=== PATIENT | male | born 1935 | race Caucasian/White ===

== ENCOUNTER 2018-01-24 10:43 | Emergency (ER) | payer OTHER, MEDICARE ==
[~2018-01-24] VITALS: Ht 170.2 cm; Wt 79.4 kg
[~2018-01-24 10:43] MED LIST: ABAC300 PO; ALBU90OI INH; AMLO10 PO; AMLO5 PO; ASPI81CH PO; ATEN50 PO; Augmentin 875-1 EACH PO; BENZ100A PO; BUPR75; CELE200 PO; CITA20 PO; Celebrex200 MG PO; ESCITALOPRAM OX20 MG PO; ESOM20; ESOM20 PO; Flonase 0.05% N16 GM; HYDCHL12.5 PO; LEVFLO500 PO; LOSA50 PO; MELO7.5 PO; MICROZIDE12.5 MG PO; Norco 5-325 Ta1 EACH PO; PANT40 PO; Prednisone20 MG PO; SIMV5 PO; TERA5 PO; [UNRECOGNIZED DRUG - OTHER] PO
[2018-01-24] MEDS ORDERED: Norco 5-325 Ta1 EACH PO (12:39)
== END 2018-01-24 13:00 | disposition home or self-care (01) ==
LOC: ER 10:43
DX: M25.551 Pain in right hip (principal); J44.9 Chronic obstructive pulmonary disease, unspecified; I10 Essential (primary) hypertension; F32.9 Major depressive disorder, single episode, unspecified; Z79.899 Other long term (current) drug therapy; Z87.891 Personal history of nicotine dependence
CPT/HCPCS: 73502; 99283

== ENCOUNTER 2018-03-22 09:03 | Day surgery (SDC) | payer MEDICARE, OTHER ==
[~2018-03-22] VITALS: Ht 170.2 cm; Wt 82.2 kg
[2018-03-22] MEDS ORDERED: TRAZ50 (09:24)
[2018-03-22] MEDS ORDERED: ABAT250V (09:25)
[2018-03-22] MEDS ORDERED: Omeprazole20 M1 PO (09:25)
== END 2018-03-22 11:01 | disposition home or self-care (01) ==
LOC: ORSCSDS 09:03
PROVIDERS: Ophthalmology
PROC: 085K3ZZ Destruction of Left Lens, Percutaneous Approach (ICD-10-PCS; principal; 2018-03-22 10:30)
PROC: 08RK3JZ Replacement of Left Lens with Synthetic Substitute, Percutaneous Approach (ICD-10-PCS; principal; 2018-03-22 10:30)
DX: H25.12 Age-related nuclear cataract, left eye (principal); I10 Essential (primary) hypertension; J44.9 Chronic obstructive pulmonary disease, unspecified; Z79.899 Other long term (current) drug therapy
CPT/HCPCS: J2250; J3010; J3301; J7040; V2632

== ENCOUNTER → 2018-06-29 | Outpatient (CLI) | payer MEDICARE, OTHER ==
[~2018-06-29] MED LIST changes: +ABAT250V; +Omeprazole20 M1 PO; +TRAZ50
[2018-06-29 15:35] LABS: Appearance, Urine Clear (Clear); Bilirubin, Urine Neg (Neg); Blood, Urine Neg (Neg); Color, Urine Yellow (P-Yellow); Glucose Qualitative, Urine Neg (Neg); Ketones, Urine Neg (Neg); Leukocyte Esterase, Urine Neg (Neg); Nitrite, Urine Neg (Neg); Protein, Urine Neg (Neg); Urobilinogen, Urine NORM (Normal)
== END ==
LOC: LAB SHORT 15:29 → LAB 15:29
PROVIDERS: Orthopaedic Surgery Adult Reconstructive Orthopaedic Surgery
DX: R35.0 Frequency of micturition (principal)
CPT/HCPCS: 81003

== ENCOUNTER 2019-03-27 09:32 | Day surgery (SDC) | payer MEDICARE, OTHER ==
[~2019-03-27] VITALS: Ht 164 cm; Wt 83.6 kg
[~2019-03-27 09:32] MED LIST changes: +ACET120S PO; +OXYM.05NI; +PRIM250 PO; +THERA1 EACH PO; +TIOT18 INH; +URINOZINC PO
--- NOTE | 2019-03-27 16:27 | NUR ---
RECEIVED PATIENT FROM KAYLA NASH RN. PT AWAKE AND ORIENTED. PT UNABLE TO BRING 02 SATS UP ON OWN WITH DBC. PLACED BACK ON 2LNC. PROVIDED FOOD AND FLUID. DRESSINGS CDI ON ARRIVAL TO ABDOMEN. TRANSFERRED CARE AND REPORT TO RHEA THOMAS.
--- NOTE | 2019-03-27 17:40 | NUR ---
up to bathroom at this time
--- NOTE | 2019-03-27 18:05 | NUR ---
Discharge instructions reviewed with patient. Patient verbalizes understanding. Copy given to patient to take home. Patient States Post-Procedure ride home has been arranged. Discharged via wheelchair to private car for ride home.
--- NOTE | 2019-03-28 11:00 | NUR ---
03/28/19 Aleta Lockhart CHART VERIFICATIONS, EDITS. CHANGE OR LEVELS AFTER DISCUSSING WITH COLEMAN BRAY.
== END 2019-03-27 22:38 | disposition home or self-care (01) ==
LOC: ORSCMMR 09:32 → ORD 11:15 → ORSCMMR 22:38
PROVIDERS: Surgery
PROC: 0WUF0JZ Supplement Abdominal Wall with Synthetic Substitute, Open Approach (ICD-10-PCS; principal; 2019-03-27 11:15)
PROC: 8E0W4CZ Robotic Assisted Procedure of Trunk Region, Percutaneous Endoscopic Approach (ICD-10-PCS; principal; 2019-03-27 11:15)
PROC: 0YUA4JZ Supplement Bilateral Inguinal Region with Synthetic Substitute, Percutaneous Endoscopic Approach (ICD-10-PCS; principal; 2019-03-27 11:15)
DX: K42.9 Umbilical hernia without obstruction or gangrene (principal); K40.20 Bilateral inguinal hernia, without obstruction or gangrene, not specified as recurrent; J44.9 Chronic obstructive pulmonary disease, unspecified; G25.0 Essential tremor; I10 Essential (primary) hypertension; N40.0 Benign prostatic hyperplasia without lower urinary tract symptoms; F32.9 Major depressive disorder, single episode, unspecified; Z79.899 Other long term (current) drug therapy; Z87.891 Personal history of nicotine dependence
CPT/HCPCS: 49650; 49585; S2900; A9270-GY; C1781; J0690; J1100; J2370; J2405; J2704; J2710; J3010; J7120

== ENCOUNTER → 2019-08-14 | Outpatient (CLI) | payer MEDICARE, OTHER | END | disposition home or self-care (01) | LOC: LAB SHORT 11:56 → PLD 11:56 | DX: C44.311 Basal cell carcinoma of skin of nose (principal); C44.41 Basal cell carcinoma of skin of scalp and neck; L57.0 Actinic keratosis | CPT/HCPCS: 88305 ==

== ENCOUNTER → 2019-09-10 | Outpatient (CLI) | payer MEDICARE, OTHER | END | disposition home or self-care (01) | LOC: PLD 08:33 → LAB SHORT 08:33 | DX: C44.41 Basal cell carcinoma of skin of scalp and neck (principal) | CPT/HCPCS: 88305 ==

== ENCOUNTER 2020-08-05 06:34 | Day surgery (SDC) | payer MEDICARE, OTHER ==
[~2020-08-05] VITALS: Ht 170.2 cm; Wt 85.5 kg
[~2020-08-05 06:34] MED LIST changes: +ACET500 PO; +Afrin15 ML; +HYDROCHLOROTH12.5 MG PO; +MULTIPLE VITAM1 EACH PO; +Primidone50 MG PO; +SIMV10 PO; +Terazosin HCl10 MG PO; +Ventolin/Prove6.7 GM INH; +[UNRECOGNIZED DRUG - OTHER]
--- NOTE | 2020-08-05 08:50 | NUR ---
08/05/20 0829 NATALIYA KELLER PATIENT TO RECLINER, VSS - PT O2 BELOW 90%, ENC TO DEEP BREATH AND O2 SATS INCREASE TO 95% ON ROOM AIR. TO BEDSIDE. PATIENT DENIES PAIN, OR NAUSEA. IV DC'D. PATIENT TOLERATING PO INTAKE AND CONT TO DENY NAUSEA. ENGAGED IN DC INSTRUCTIONS. ALL QUESTIONS ASKED AND ANSWERED. ESCORTED TO VEHICLE VIA WC
== END 2020-08-05 08:47 | disposition home or self-care (01) ==
LOC: ORSCSDS 06:34
PROVIDERS: Ophthalmology
PROC: 08RJ3JZ Replacement of Right Lens with Synthetic Substitute, Percutaneous Approach (ICD-10-PCS; principal; 2020-08-05 08:00)
DX: H25.11 Age-related nuclear cataract, right eye (principal); H57.03 Miosis; H21.81 Floppy iris syndrome; I10 Essential (primary) hypertension; J44.9 Chronic obstructive pulmonary disease, unspecified; F17.210 Nicotine dependence, cigarettes, uncomplicated; Z79.899 Other long term (current) drug therapy
CPT/HCPCS: J2250; J3010; J7040; V2632

== ENCOUNTER 2020-09-03 15:24 | Emergency (ER) | payer OTHER, MEDICARE ==
[~2020-09-03] VITALS: Ht 170.2 cm; Wt 81.7 kg
[2020-09-03] MEDS ORDERED: AMLO10 PO (16:52)
[2020-09-03] MEDS ORDERED: BUPR150ER PO (16:52)
[2020-09-03] MEDS ORDERED: ZOCOR20 MG PO (16:52)
== END 2020-09-03 18:41 | disposition home or self-care (01) ==
LOC: ER 15:24
DX: R04.0 Epistaxis (principal); I10 Essential (primary) hypertension; J44.9 Chronic obstructive pulmonary disease, unspecified; F32.9 Major depressive disorder, single episode, unspecified; Z79.899 Other long term (current) drug therapy; Z87.891 Personal history of nicotine dependence
CPT/HCPCS: 99283

== ENCOUNTER 2021-04-15 21:23 | Inpatient (IN) | payer MEDICARE, OTHER ==
[~2021-04-15] VITALS: Ht 170.2 cm; Wt 89.0 kg
[~2021-04-15 21:23] MED LIST changes: +BUPR150ER PO; +ZOCOR20 MG PO
[2021-04-15 21:50] LABS: BASOPHILS ABSOLUTE AUTO 0.03 K/mm3 (0.00-0.23); BASOPHILS PERCENT AUTO 1 % (0-2); EOSINOPHILS ABSOLUTE AUTO 0.02 K/mm3 (0.00-0.68); EOSINOPHILS PERCENT AUTO 0 % (0-6); Hemoglobin 12.4 g/dL (13.5-17.5); IMMATURE GRAN ABSOLUTE AUTO 0.03 K/mm3 (0.00-0.10); IMMATURE GRAN PERCENT AUTO 1 % (0-1); LYMPHOCYTES ABSOLUTE AUTO 1.31 K/mm3 (0.84-5.20); LYMPHOCYTES PERCENT AUTO 22 % (21-46); MONOCYTES ABSOLUTE AUTO 0.51 K/mm3 (0.16-1.47); MONOCYTES PERCENT AUTO 9 % (4-13); Mean Corpuscular HGB 28.5 pg (26.0-34.0); Mean Corpuscular HGB Conc 31.8 g/dL (31.5-36.5); Mean Corpuscular Volume 90 fL (80-100); Mean Platelet Volume 9.6 fL (9.1-12.4); NEUTROPHILS ABSOLUTE AUTO 3.96 K/mm3 (1.96-9.15); NEUTROPHILS PERCENT AUTO 68 % (41-73); Platelet Count 165 K/mm3 (150-400); RDW Coefficient Variation 14.3 % (11.7-14.2); RDW Standard Deviation 46.8 fL (35.1-46.3); Red Blood Cell Count 4.35 M/mm3 (4.30-5.90); White Blood Cell Count 5.86 K/mm3 (4.00-11.30)
[2021-04-15 22:22] LABS: Albumin, Blood 3.6 g/dL (3.4-5.0); Albumin/Globulin Ratio 0.9 (0.8-1.8); Bilirubin, Total 0.4 mg/dL (0.1-1.0); Creatinine, Blood 1.84 mg/dL (0.60-1.20); Globulin, Blood 3.8 g/dL (2.2-4.0); Potassium, Blood 3.8 mmol/L (3.5-5.5); Total Protein, Blood 7.4 g/dL (6.4-8.2)
[2021-04-15 22:27] LABS: Troponin I 5.08 ng/mL (0.000-0.040)
[2021-04-15 23:50] LABS: International Normalized Ratio 0.96; Prothrombin Time Results 10.4 Sec (9.7-11.5)
--- NOTE | 2021-04-16 03:09 | NUR ---
ARRIVAL TO ICU PT ARRIVED TO ICU AT 0003 VIA ED BED. PT WAS ABLE TO SCOOT HIMSELF OVER INTO THE ICU BED WHICK INCREASED HIS DYSPNEA AND O2 SATURATIONS WENT INTO THE HIGH 80'S. PT PLACED BACK ON 3L NC AND RECOVERED WITH SPO2 BEING >90% NOW; OCCTIONAL HARSH, HACKING, NONPRODUCTIVE COUGH NOTED; PT STATES THAT CHEST PAIN INCREASES WITH COUGHING. PT IS ALERT/ORIENTED X4 AND IS ABLE TO MAKE HIS NEEDS KNOWN. AFEBRILE. HR 60'S. SBP 140-160. AT REST NO C/O CHEST PAIN, DYSPNEA, OR NAUSEA. PT NPO SINCE MIDNIGHT. HEPARIN INFUSING AT 13UNITS/KG/HR. NS INFUSING AT 75ML/HR. SEE ADMISSION ASSESSMENT FOR FULL ASSESSMENT.
[2021-04-16 06:10] LABS: BASOPHILS ABSOLUTE AUTO 0.02 K/mm3 (0.00-0.23); BASOPHILS PERCENT AUTO 0 % (0-2); EOSINOPHILS ABSOLUTE AUTO 0.07 K/mm3 (0.00-0.68); EOSINOPHILS PERCENT AUTO 1 % (0-6); Hematocrit 35.6 % (37.0-53.0); Hemoglobin 11.4 g/dL (13.5-17.5); IMMATURE GRAN ABSOLUTE AUTO 0.02 K/mm3 (0.00-0.10); IMMATURE GRAN PERCENT AUTO 0 % (0-1); LYMPHOCYTES ABSOLUTE AUTO 1.92 K/mm3 (0.84-5.20); LYMPHOCYTES PERCENT AUTO 30 % (21-46); MONOCYTES ABSOLUTE AUTO 0.67 K/mm3 (0.16-1.47); MONOCYTES PERCENT AUTO 11 % (4-13); Mean Corpuscular HGB 28.2 pg (26.0-34.0); Mean Corpuscular Volume 88 fL (80-100); Mean Platelet Volume 9.8 fL (9.1-12.4); NEUTROPHILS ABSOLUTE AUTO 3.63 K/mm3 (1.96-9.15); NEUTROPHILS PERCENT AUTO 57 % (41-73); Platelet Count 148 K/mm3 (150-400); RDW Coefficient Variation 14.2 % (11.7-14.2); RDW Standard Deviation 45.7 fL (35.1-46.3); Red Blood Cell Count 4.04 M/mm3 (4.30-5.90); White Blood Cell Count 6.33 K/mm3 (4.00-11.30)
--- NOTE | 2021-04-16 06:13 | NUR ---
END OF SHIFT SUMMARY PT ABLE TO GET A FEW HOURS OF SLEEP AFTER ARRIVING TO ICU. PT IS ALERT/ORIENTED X4 AND IS ABLE TO MAKE HIS NEEDS KNOWN. AFEBRILE. SPO2 >90% ON 5L NC WHILE SLEEPING, WHEN AWAKE CAN TOLERATE 3L NC. PT BECOMES MORE DYSPNIC WITH EXERTION. HR 60'S. SBP 160-170. NO C/O CHEST PAIN, DYSPNEA, OR NAUSEA WHEN AT REST. PT ABLE TO USE URINAL INDEPENDENTLY. HEPARIN INFUSING AT 13UNITS/KG/HR. NS INFUSING AT 75ML/HR. PT HAS BEEN NPO SINCE MIDNIGHT. WILL REPORT TO AM RN WHEN AVAILABLE.
[2021-04-16 06:30] LABS: Albumin, Blood 3.2 g/dL (3.4-5.0); Albumin/Globulin Ratio 0.9 (0.8-1.8); Bilirubin, Total 0.4 mg/dL (0.1-1.0); Bun/Creatinine Ratio 23.9 (12.0-20.0); Calcium, Blood 8.7 mg/dL (8.5-10.1); Creatinine, Blood 1.34 mg/dL (0.60-1.20); Globulin, Blood 3.4 g/dL (2.2-4.0); Potassium, Blood 3.2 mmol/L (3.5-5.5); Total Protein, Blood 6.6 g/dL (6.4-8.2)
--- NOTE | 2021-04-16 06:45 | NUR ---
UPDATE PT POTASSIUM LAB WAS 3.2 THIS AM; DR ESCAMILLA NOTIFIED AND PROVIDED NEW ORDERS FOR 40 MEQ KCL PO X1.
[2021-04-16 06:47] LABS: Troponin I 3.23 ng/mL (0.000-0.040)
[2021-04-16 07:05] LABS: Creatine Kinase MB 12.5 ng/mL (0.0-3.6); Creatine Kinase MB Index 2.8 (0.0-4.0)
--- NOTE | 2021-04-16 07:54 | NUR ---
Care assumed 0700 Pt a/o x4, able to state event, location, date/year. Denies CP or pressure at this time. BP 150/80 HR 70'S. NSR. On Heparin 13 units/kg/hr, infusing via right wrist IV. ON 5 L NC, SPO2 > 90%. Pt states needing oxygen at home, PRN. Able to turn self in bed. Spoke to Dr. Kearney, pt to be kept NPO and echo to be completed prior to computer lab assistant. Pt updated on plan and states understanding.
--- NOTE | 2021-04-16 09:00 | NUR ---
Provider Visit- DR. MICAELA Kearney in to see pt. Per provider Heparin stopped. Pt consented to cath. Pt states having [employer] covid vaccine 4 months ago and [employer] updated. Per lab if pt has no symptoms, covid test is not indiciated. Pts called and updated on current plan, phone transfered into pts room per wifes request.
[2021-04-16 15:00] LABS: Troponin I 2.81 ng/mL (0.000-0.040)
[2021-04-16 15:18] LABS: Creatine Kinase MB 10.2 ng/mL (0.0-3.6); Creatine Kinase MB Index 2.8 (0.0-4.0)
--- NOTE | 2021-04-16 16:44 | NUR ---
Prayer and encouragement provided to pt and spouse.
--- NOTE | 2021-04-16 17:16 | NUR ---
Patient to [facility] 1715 VSS. Pt A/O X 4. On 5 L via NC, SPO2 > 90%. Denies CP/pressure. at bedside, leaving and will return after with dinner.
--- NOTE | 2021-04-16 21:30 | NUR ---
ASSUMED CARE/RETURNED TO ICU 2 PT RETURNED TO ICU 2 AT 1944 VIA ICU BED. PT ON A NON-REBREATHER AT 15L AND MILDLY CONFUSED. AT BEDSIDE. CONFUSION CLEARED SLOWLY AND NOW PT IS ALERT/ORIENTED X4 AND IS ABLE TO MAKE HIS NEEDS KNOWN. WAS ABLE TO TITRATE PT BACK TO A NC ON 5L, SPO2 >90%. HR 70-80'S. BP 160-170, ONE DOSE OF HYDRALAZINE GIVEN AND HELPFUL BRINING SBP TO THE 120-130'S. RT RADIAL SITE SHOWS NO SIGNS OF BLEEDING OR HEMATOMA, SLOWLY DEFLATING TR BAND AND SITE IS TOLERATING WELL. RT GROIN SITE SHOWS SMALL AMOUNT OF SEROSANGUINOUS AT 2114 CHECK, WILL CONT TO MONITOR. BOTH SITES CHECKED EVERY 15MIN X4, AND EVERY 30MIN X2. PT COMPLIENT WITH KEEPING LEG STRAIGHT. PT TOLERATING SIPS OF WATER WELL. SEE SHIFT ASSESSMENT FOR FULL ASSESSMENT. PT TOLERATING SIPS OF WATER WELL
--- NOTE | 2021-04-16 22:50 | NUR ---
UPDATE PT USED CALL LIGHT TO NOTIFY RN THAT THERE WAS AN INCREASE IN PAIN TO HIS RT GROIN SITE AT 2215. A HEMATOMA WAS FOUND AT GROIN SITE THE SIZE OF A GOLFBALL, MANUAL PRESSURE APPLIED TO SITE, CHARGE NURSE NOTIFIED. DR FERRER CONTACTED ABOUT HEMATOMA AND PTT OF 69.9. NEW ORDERS PROVIDED TO PULL THE RT FEMERAL SHEETH, APPLY MANUAL PRESSURE, AND GIVE A DOSE OF PROTAMINE SULFATE, SEE EMAR. AFTER SHEET WAS PULLED, MANUAL PRESSURE APPLIED FOR 20MIN THAN DRESSING APPLIED TO SITE. A 1 INCH HEMATOMA NOTED AFTER PRESSURE WAS RELEASED. WILL CONT TO MONITOR SITE.
--- NOTE | 2021-04-17 01:37 | NUR ---
UPDATE TR BAND REMOVED FROM RT WRIST AT 0130, NO SIGNS OF BLEEDING OR HEMATOMA. RT GROIN SITE HAS HEMATOMA THAT IS <1 INCH NOW. BRUISING NOTED WHERE SUTURES WERE. NO SIGNS OF BLEEDING. WILL CONT TO MONITOR.
[2021-04-17 03:43] LABS: BASOPHILS ABSOLUTE AUTO 0.03 K/mm3 (0.00-0.23); BASOPHILS PERCENT AUTO 0 % (0-2); EOSINOPHILS ABSOLUTE AUTO 0.05 K/mm3 (0.00-0.68); EOSINOPHILS PERCENT AUTO 1 % (0-6); Hematocrit 36.2 % (37.0-53.0); Hemoglobin 11.5 g/dL (13.5-17.5); IMMATURE GRAN ABSOLUTE AUTO 0.03 K/mm3 (0.00-0.10); IMMATURE GRAN PERCENT AUTO 0 % (0-1); LYMPHOCYTES ABSOLUTE AUTO 0.83 K/mm3 (0.84-5.20); LYMPHOCYTES PERCENT AUTO 11 % (21-46); MONOCYTES ABSOLUTE AUTO 0.52 K/mm3 (0.16-1.47); MONOCYTES PERCENT AUTO 7 % (4-13); Mean Corpuscular HGB 28.8 pg (26.0-34.0); Mean Corpuscular HGB Conc 31.8 g/dL (31.5-36.5); Mean Corpuscular Volume 91 fL (80-100); Mean Platelet Volume 9.9 fL (9.1-12.4); NEUTROPHILS ABSOLUTE AUTO 5.89 K/mm3 (1.96-9.15); NEUTROPHILS PERCENT AUTO 80 % (41-73); Platelet Count 146 K/mm3 (150-400); RDW Coefficient Variation 14.3 % (11.7-14.2); White Blood Cell Count 7.35 K/mm3 (4.00-11.30)
--- NOTE | 2021-04-17 03:45 | NUR ---
REPORT OFF REPORT GIVEN TO CANDELARIO THOMAS AT 0345. PT SLEEPING, GROIN SITE AND RT RADIAL SITE CHECKED.
[2021-04-17 04:07] LABS: Alanine Aminotransfer (ALT/SGP 157 U/L (12-78); Albumin, Blood 3.2 g/dL (3.4-5.0); Alk Phos 79 U/L (50-136); Anion Gap 4 mmol/L (6-16); Aspartate Aminotrans (AST/SGOT 132 U/L (12-37); Bilirubin, Direct 0.2 mg/dL (0.0-0.3); Bilirubin, Indirect 0.4 mg/dL (0.1-0.7); Bilirubin, Total 0.6 mg/dL (0.1-1.0); Blood Urea Nitrogen 22 mg/dL (8-24); Bun/Creatinine Ratio 26.3 (12.0-20.0); CO2, Blood 28 mmol/L (21-32); Calcium, Blood 8.2 mg/dL (8.5-10.1); Chloride, Blood 102 mmol/L (98-108); Creatinine, Blood 0.84 mg/dL (0.60-1.20); Globulin, Blood 3.3 g/dL (2.2-4.0); Glomerular Filtration Rate >60 (60-); Glucose, Blood 87 mg/dL (70-99); Phosphorus, Blood 2.7 mg/dL (2.5-4.9); Potassium, Blood 3.6 mmol/L (3.5-5.5); Sodium, Blood 134 mmol/L (136-145); Total Protein, Blood 6.5 g/dL (6.4-8.2)
--- NOTE | 2021-04-17 05:11 | NUR ---
ASSUMPTION OF CARE 0345 ASSUMED CARE. RADIAL AND GROIN SITES CHECKED. STABLE. DRESSINGS CDI. PT DENYING CP/PRESSURE. VSS WITH SOME HTN NOTED, MEDS VIA PREVIOUS RN ADMINISTERED. PT RESTING COMFORTABLY IN ROOM.
--- NOTE | 2021-04-17 09:22 | NUR ---
PT A/O X4. UP TO CHAIR WITH MINIMAL ASSIST. R GROIN ACCESS SITE AND R RADIAL ACCESS SITE REMAIN STABLE. R GROIN HAS SOME BRUISING AROUND SITE BUT SOFT AND NON TENDER. ARMBOARD IN PLACE TO R ARM. PT IS ON 2L O2 VIA NC. PT WEARS 2L AT HOME. NO SIGN OF DISTRESS. CALL LIGHT IN REACH.
[2021-04-17] MEDS ORDERED: ATORVASTATIN CA80 M1 PO (12:36)
[2021-04-17] MEDS ORDERED: METO25 PO (12:37)
[2021-04-17] MEDS ORDERED: CLOP75 PO (12:37)
[2021-04-17] MEDS ORDERED: ASPI81CH PO (12:37)
[2021-04-17] MEDS ORDERED: NITR.4SL SL (12:38)
--- NOTE | 2021-04-17 12:51 | NUR ---
PT A/O X4. AMBULATES WITH MINIMAL ASSIST. BOTH R RADIAL AND R FEMORAL ACCESS SITES ARE STABLE. PT DISCHARGED. D/C INSTRUCTIONS GONE OVER WITH PT AND . NEW RX FAXED TO [facility]. NO SIGN OF DISTRESS. PT WHEELED TO CAR WITH SALESPERSON PARTS ASSIST.
== END 2021-04-17 12:30 | disposition home or self-care (01) | DRG 250 ==
LOC: ER 21:23 → ICUW 21:24 → ICUE 21:24 → ER 21:24 → ICUE 04-16 → ICUW 04-16 → ICUE 04-16 11:14
PROVIDERS: Emergency Medicine; Family Medicine; Pharmacist; ADMIT Internal Medicine
PROC: 02703ZZ Dilation of Coronary Artery, One Artery, Percutaneous Approach (ICD-10-PCS; principal; 2021-04-16)
PROC: 4A023N7 Measurement of Cardiac Sampling and Pressure, Left Heart, Percutaneous Approach (ICD-10-PCS; 2021-04-16)
PROC: B2111ZZ Fluoroscopy of Multiple Coronary Arteries using Low Osmolar Contrast (ICD-10-PCS; 2021-04-16)
DX: I21.4 Non-ST elevation (NSTEMI) myocardial infarction (principal); J96.21 Acute and chronic respiratory failure with hypoxia; N17.9 Acute kidney failure, unspecified; J98.11 Atelectasis; E87.1 Hypo-osmolality and hyponatremia; I10 Essential (primary) hypertension; E78.5 Hyperlipidemia, unspecified; N40.0 Benign prostatic hyperplasia without lower urinary tract symptoms; F32.9 Major depressive disorder, single episode, unspecified; Z79.899 Other long term (current) drug therapy; Z98.890 Other specified postprocedural states; E78.00 Pure hypercholesterolemia, unspecified; J44.9 Chronic obstructive pulmonary disease, unspecified; E87.6 Hypokalemia; D69.6 Thrombocytopenia, unspecified; Z96.641 Presence of right artificial hip joint; Z87.891 Personal history of nicotine dependence; I25.10 Atherosclerotic heart disease of native coronary artery without angina pectoris
CPT/HCPCS: 36415; 71046; 76937; 80053; 82248; 82550; 82553; 83690; 83880; 84100; 84145; 84484; 85025; 85347; 85610; 85730; 92920; 93005; 93010; 93306; 93454; 94640; 99152; 99153; 99285-25; A9270; C1725; C1769; C1887; C1894; G0378; J0360; J1644; J2060; J2250; J2720; J3010; J7030; J7040; J7050; Q9967

== ENCOUNTER 2021-06-21 08:22 | Emergency (ER) | payer MEDICARE, OTHER ==
[~2021-06-21] VITALS: Ht 170.2 cm; Wt 83.9 kg
[~2021-06-21 08:22] MED LIST changes: +ATORVASTATIN CA80 M1 PO; +CLOP75 PO; +METO25 PO; +NITR.4SL SL
== END 2021-06-21 10:34 | disposition home or self-care (01) ==
LOC: ER 08:22
DX: R04.0 Epistaxis (principal); J44.9 Chronic obstructive pulmonary disease, unspecified; I10 Essential (primary) hypertension; Z79.82 Long term (current) use of aspirin; Z79.02 Long term (current) use of antithrombotics/antiplatelets; Z79.899 Other long term (current) drug therapy
CPT/HCPCS: 30905; 99283-25

== ENCOUNTER 2021-06-23 10:07 | Emergency (ER) | payer MEDICARE, OTHER ==
[~2021-06-23] VITALS: Ht 170.2 cm; Wt 72.6 kg
== END 2021-06-23 10:55 | disposition home or self-care (01) ==
LOC: ER 10:07
DX: Z48.00 Encounter for change or removal of nonsurgical wound dressing (principal); I10 Essential (primary) hypertension; Z79.02 Long term (current) use of antithrombotics/antiplatelets; Z79.82 Long term (current) use of aspirin; Z79.899 Other long term (current) drug therapy
CPT/HCPCS: 99281

== ENCOUNTER → 2021-09-21 | Outpatient (CLI) | payer MEDICARE, OTHER | END | disposition home or self-care (01) | LOC: LAB SHORT 12:48 → LAB 12:48 | DX: D48.5 Neoplasm of uncertain behavior of skin (principal) | CPT/HCPCS: 88305 ==

== ENCOUNTER → 2022-07-14 | Outpatient (CLI) | payer OTHER | END | disposition home or self-care (01) | LOC: LAB SHORT 11:07 → LAB 11:07 | DX: C44.319 Basal cell carcinoma of skin of other parts of face (principal) | CPT/HCPCS: 88305 ==

== ENCOUNTER → 2023-05-26 | Outpatient (CLI) | payer MEDICARE, OTHER | END | disposition home or self-care (01) | LOC: PLD 12:39 → LAB SHORT 12:39 | DX: D48.5 Neoplasm of uncertain behavior of skin (principal) | CPT/HCPCS: 88305 ==

== ENCOUNTER 2025-06-22 15:42 | Emergency (ER) | payer OTHER ==
[~2025-06-22] VITALS: Ht 180.3 cm; Wt 65.8 kg
[2025-06-22 15:47] VITALS: BP 138/68
== END 2025-06-22 17:29 | disposition home or self-care (01) ==
LOC: ER 15:42
DX: M79.675 Pain in left toe(s) (principal); I10 Essential (primary) hypertension; J44.9 Chronic obstructive pulmonary disease, unspecified; Z79.82 Long term (current) use of aspirin; Z79.899 Other long term (current) drug therapy
CPT/HCPCS: 73660